=== PATIENT | female | born 1940 | race Caucasian/White ===

== ENCOUNTER 2017-09-06 05:49 | Day surgery (SDC) | payer MEDICARE ==
[2017-09-04 08:51] LABS: BASOPHILS % (AUTO) 1.4 % (0.0-5.0); EOSINOPHILS % (AUTO) 3.3 % (0.0-8.0); HEMATOCRIT 37.7 % (36-48); LYMPHOCYTES % (AUTO) 21.8 % (21.0-51.0); MEAN CORPUSCULAR HGB CONC 34.4 g/dL (32.0-36.0); MEAN CORPUSCULAR VOLUME 92.9 fL (79-99); MONOCYTES % (AUTO) 7.4 % (3.0-13.0); NEUTROPHILS % (AUTO) 66.1 % (40.0-77.0); NUCLEATED RED BLOOD CELLS 0.1 % (0.0-0.19); PLATELET COUNT (AUTO) 268 K/uL (130-400); RED BLOOD CELL COUNT(AUTO) 4.06 MIL/uL (4.00-5.50); RED CELL DISTRIBUTION WIDTH 14.2 % (11.0-15.5); WHITE BLOOD COUNT (AUTO) 4.6 K/uL (4.8-10.8)
[2017-09-04 08:52] LABS: APPEARANCE,URINE Clear (CLEAR); BILIRUBIN,URINE Negative (NEGATIVE); COLOR,URINE Yellow (YELLOW); GLUCOSE, URINE (UA) Negative (NEGATIVE); KETONES,URINE Negative (NEGATIVE); LEUKOCYTE ESTERASE ,URINE Small (NEGATIVE); NITRATE,URINE Negative (NEGATIVE); OCCULT BLOOD,URINE Negative (NEGATIVE); PROTEIN,URINE Negative (NEGATIVE); UROBILINOGEN,URINE 0.2 mg/dL (0.2-1.0)
[2017-09-04 09:02] VITALS: BP 160/68
[2017-09-04 09:03] LABS: CREATININE 0.9 mg/dL (0.5-1.5); POTASSIUM 3.9 mmol/L (3.5-5.1)
[2017-09-04 09:36] LABS: INR 0.94 (0.85-1.15); PARTIAL THROMBOPLASTIN TIME 25.5 SEC (26.3-35.5); PROTHROMBIN TIME 9.9 SEC (9.6-11.6)
[2017-09-04 09:39] LABS: BACTERIA,URINE Rare /HPF (None Seen); RBC,URINE 0-1 /HPF (0-1); SQUAMOUS EPITHELIAL CELL,UR Rare /LPF (0-2); WBC,URINE 0-1 /HPF (0-1)
[2017-09-06] VITALS (12 sets, daily range): BP systolic 159–204; BP diastolic 52–92
[~2017-09-06] VITALS: Ht 172.7 cm; Wt 101.5 kg
[~2017-09-06 05:49] MED LIST: ASPI-1012 PO; CALC600T12 PO; CHOL200013 PO; EZET10 PO; FISH1CAP49 PO; FLAX100031 PO; FURO-152 PO; METO-408 PO; MONT10TA24 PO; MULT-1077 PO; VALS160T28 PO
[2017-09-06] MEDS ORDERED: DIAZEPAM 5 MG TABLET ONE (06:58)
[2017-09-06] MEDS ORDERED: SODIUM BICARB 50MEQ 50ML VIAL ONE (07:12)
[2017-09-06] MEDS ORDERED: NITROGLYCERIN 5 MG/ML 10 ML VIAL IV ONE (07:12)
[2017-09-06] MEDS ORDERED: HEPARIN SODIUM 1000UNIT/ML 10ML VIAL ONE (07:12)
[2017-09-06] MEDS ORDERED: ISOVUE-370 50ML VIAL IV ONE ×3 (07:13→08:56)
[2017-09-06] MEDS ORDERED: IOPAMIDOL-370 100 ML VIAL IV ONE (07:13)
[2017-09-06] MEDS ORDERED: LIDOCAINE HCL 2% 20ML ONE (07:14)
[2017-09-06] MEDS ORDERED: MIDAZOLAM HCL 1 MG/ML 2ML VIAL ONE (07:31)
[2017-09-06] MEDS ORDERED: LABETALOL HCL 5 MG/ML 20ML VIAL IV ONE (07:31)
[2017-09-06] MEDS ORDERED: MEPERIDINE-PF 25 MG/ML SYG ONE (07:31)
[2017-09-06] MEDS ORDERED: SODIUM CHLORIDE 0.9% 1000ML 1,000 ML IV ONE (08:20)
[2017-09-06] MEDS ORDERED: SODIUM CHLORIDE 0.9% 1000ML 1,000 ML IV SCH (09:09)
[2017-09-06] MEDS ORDERED: ACETAMINOPHEN-CODEINE 300/30MG TAB PO PRN ×2 (09:15)
[2017-09-06] MEDS ORDERED: HYDRALAZINE HCL 20 MG/ML VIAL ONE (11:37)
== END 2017-09-06 15:44 | disposition home or self-care (01) ==
LOC: DAH 05:49
PROVIDERS: ATTEND Internal Medicine Cardiovascular Disease
DX: I25.118 Atherosclerotic heart disease of native coronary artery with other forms of angina pectoris (principal); I65.23 Occlusion and stenosis of bilateral carotid arteries; Z95.1 Presence of aortocoronary bypass graft; I10 Essential (primary) hypertension; E78.5 Hyperlipidemia, unspecified; J45.909 Unspecified asthma, uncomplicated; Z90.710 Acquired absence of both cervix and uterus; Z98.890 Other specified postprocedural states; Z79.899 Other long term (current) drug therapy; G72.89 Other specified myopathies; Z88.8 Allergy status to other drugs, medicaments and biological substances; I77.819 Aortic ectasia, unspecified site; I77.810 Thoracic aortic ectasia
CPT/HCPCS: 36223; 36225; 36415; 71045; 80048; 81001; 85025; 85610; 85730; 93005; 93459; A4606; C1760; C1769 ×2; C1894; J0360; J1644; J2175; J2250; J3490 ×3; J7030; Q9967 ×3; 99152; 99153

== ENCOUNTER → 2017-09-14 | Outpatient (CLI) | payer MEDICARE ==
[~2017-09-14] MED LIST changes: +IOPAMIDOL-370 75 ML VIAL IV ONE
== END | disposition home or self-care (01) ==
LOC: OIH 08:38
PROVIDERS: ATTEND Internal Medicine Cardiovascular Disease
DX: I70.90 Unspecified atherosclerosis (principal); M47.892 Other spondylosis, cervical region; R94.39 Abnormal result of other cardiovascular function study
CPT/HCPCS: 70498; Q9967

== ENCOUNTER → 2017-09-27 | Outpatient (CLI) | payer MEDICARE ==
[~2017-09-27] MED LIST changes: +IOPAMIDOL-370 100 ML VIAL IV ONE; -IOPAMIDOL-370 75 ML VIAL IV ONE; -VALS160T28 PO; +VALS160T29 PO
== END ==
LOC: RAH 07:27
PROVIDERS: ATTEND Internal Medicine Cardiovascular Disease
DX: K75.3 Granulomatous hepatitis, not elsewhere classified (principal); I71.01 Dissection of thoracic aorta; I25.10 Atherosclerotic heart disease of native coronary artery without angina pectoris
CPT/HCPCS: 71275; Q9967